=== PATIENT | female | born 1950 | race Caucasian/White ===

== ENCOUNTER 2016-09-21 05:37 | Inpatient (IN) | payer MEDICARE ==
--- NOTE | ~2016-09-21 | EEG ---
Electroencephalogram [address] [id number] [place]. [address] NAME: MCKAYLA LAWRENCE : 52 STATUS : ADM IN PAT#: [id number] AGE: 65 ADM/REG DATE : 09/21/16 MR#: [id number] REPORT SERV DATE: 09/23/16 DICTATED BY: DATE: REPORT STATUS : Draft TRANSCRIBED BY: MODL DATE: 09/23/16 CLINICAL INDICATION: Encephalopathy and stroke. DESCRIPTION: This EEG was performed using 10/20 electrode placement system. During the EEG study, symmetric background activity was noted with predominant occipital rhythm of 8 hertz. Photic stimulation was performed with driving response. Hyperventilation was not performed secondary to the patient's underlying medical condition. During the EEG study, the patient achieved drowsy state. No focal abnormalities, seizure activity, or seizure discharge were otherwise noted. INTERPRETATION: This EEG study was obtained during awake and drowsy state, may be considered within normal limits. No focal abnormalities, seizure activity, or seizure discharge were otherwise noted. Clinical correlation is recommended. [facility]/MODL Marvin Kenney MD / [id number] CC: MD Jesus Montiel M.D.
--- NOTE | ~2016-09-21 | DS ---
Discharge Summary [facility] [address] [facility] [place]. [address] NAME: MCKAYLA LAWRENCE : 52 STATUS : DIS IN PAT#: [id number] AGE: 65 ADM/REG DATE : 09/21/16 MR#: [id number] REPORT SERV DATE: 09/26/16 DICTATED BY: CRISTY SANDS DATE: 09/26/16 REPORT STATUS : Draft TRANSCRIBED BY: MODL DATE: 09/26/16 ADMISSION DATE: 09/21/2016 DISCHARGE DATE: 09/26/2016 ADDENDUM: The patient was actually scheduled to be discharged on 09/26/2016 to rehab, not on 09/25/2016. There were no overnight issues. We are working on, given the patient had enema and had a bowel movement. The patient does complain of some crampy abdominal pain, a little bit nausea secondary to constipation, but hope that this will be resolved after an enema and a bowel movement. The patient will be discharged today to [facility] Facility for rehab. Please refer to my discharge dictation for complete details regarding the patient's hospitalization, procedures, and medications. Spending over 30 minutes in discharge planning and coordination of care of Ms. Lawrence. TI/NIGEL Cristy Sands MD / [id number] CC: MD Jesus Montiel M.D.
--- NOTE | ~2016-09-21 | CN ---
Consultation Report [facility] [address] [place]. [address] NAME: MCKAYLA LAWRENCE : 52 STATUS : ADM IN PAT#: [id number] AGE: 65 ADM/REG DATE : 09/21/16 MR#: [id number] REPORT SERV DATE: 09/22/16 DICTATED BY: RADHA DELANEY DATE: 09/22/16 REPORT STATUS : Draft TRANSCRIBED BY: MODL DATE: 09/22/16 NEUROLOGY CONSULTATION DATE OF CONSULTATION: 09/22/2016 REASON FOR CONSULTATION: Right hemiparesis. HOSPITALIST: Dr. Nikolas Sands MD. HISTORY OF PRESENT ILLNESS: The patient is a 65-year-old female, who has complained of right sided weakness over the last fbqd-lp-[id number] days. The patient mentions that she has had right sided numbness due to an old stroke which happened approximately a year ago. However, over the last iuem-nv-[id number] days, she has gradually acquired weakness in the same distribution. She denies a sudden onset associated with this weakness. She does mention that on Wednesday, she called the EMS service and had to "drag her leg" with her walker over to the door to let the EMS in. At this point, she stated that she passed out and fell to the floor. She denies recalling having any seizure activity. When questioned more extensively, the patient mentioned that she has been diagnosed with seizure. She reports having tonic-clonic seizure activity and has been on Dilantin. However, she took herself off the medication a year ago because she was doing so well. Since that time, she denies having any seizure activity. The patient also reports having migraine headaches for the past 10 years. She has a headache usually every day and takes Percocet for her headache and her chronic pain. She takes wif-up-xdmhy of these a day. PAST MEDICAL HISTORY: Stroke with right-sided weakness; chronic diastolic heart failure; seizure; hypertension; hyperlipidemia; GERD; hiatal hernia; gastroparesis; irritable bowel syndrome; chronic back pain; diabetes mellitus; recurrent UTI (with 1 episode of ESBL); depression; anxiety; tobacco abuse; coronary artery disease; osteoarthritis; and degenerative disc disease. PAST SURGICAL HISTORY: Cholecystectomy, appendectomy, bladder tack, and tubal ligation. HOME MEDICATIONS: List consists of 1. Norvasc 5 mg daily. 2. Catapres TTS patch 3 mg in 24 hours to be applied q.week. 3. Valium 5 mg t.i.d. p.r.n. 4. Cymbalta 60 mg b.i.d. 5. Glyxambi 1 tablet daily. 6. Fenofibrate 160 mg daily. 7. Apresoline 50 mg q.8 hours. 8. Vascepa 1 g capsule b.i.d. Consultation Report [address] [place]. [address] NAME: MCKAYLA LAWRENCE : 52 STATUS : ADM IN PAT#: [id number] AGE: 65 ADM/REG DATE : 09/21/16 MR#: [id number] REPORT SERV DATE: 09/22/16 DICTATED BY: RADHA DELANEY DATE: 09/22/16 REPORT STATUS : Draft TRANSCRIBED BY: NIGEL DATE: 09/22/16 9. NovoLog insulin on a sliding scale. 10.Tresiba FlexTouch U-200 Pen 32 units daily. 11.Avalide 300/12.5 mg daily. 12.Imdur 30 mg daily. 13.Percocet 10/325 mg q.4 hours p.r.n. 14.Lyrica 75 mg b.i.d. 15.Phenergan 25 mg every 6 hours p.r.n. 16.Inderal LA 80 mg p.r.n. 17.Crestor 40 mg at bedtime. 18.Zanaflex 4 mg t.i.d. p.r.n. 19.Ambien 10 mg at bedtime p.r.n. ALLERGIES: NONE. SOCIAL HISTORY: The patient is a . She has 4 daughters. She lives by herself. She does use a walker to get around. She is a smoker. She does not drink alcohol or use recreational drugs. FAMILY HISTORY: The patient's mother is 82 years old, she is alive, she suffers from COPD. Her father at the age of 74 from lung cancer. She has two sisters who both from breast cancer. REVIEW OF SYSTEMS: For pertinent positives, see HPI. PHYSICAL EXAMINATION: GENERAL: The patient is a 65-year-old female, who stands 5 feet 6 inches tall and weighs 160 pounds. She is afebrile. VITAL SIGNS: Heart rate is 74, respiratory rate 18, O2 saturations on 1 L nasal cannula 96%, and blood pressure 125/84. NEUROLOGIC: The patient is awake. She is alert and oriented to person and place, not time. She is oriented to situation. Pupils are 4 mm. PERRLA. Cranial nerves 2 through 12 are intact. Vision via confrontation is full in both ramirez. She does report a slight diminished sensation on the right side of her face compared to the left. She is unable to perform [id number]-rv-idrj with the right arm. She is unable to lift her right arm without assistance. Strength in the right arm is 1/5 and in the left arm is 4/5. There is no tremor in the left arm, dysmetria, asterixis. DTRs are 2+ bilaterally. No reported sensory deficits comparing the left than the right. In the lower extremities, strength in the right is a 1/5 and on the left is a 4/5. DTRs are 2+ bilaterally. Slight footdrop noted bilaterally. Plantar reflexes are silent. The patient reports diminished sensation on the left when compared to the right. She cannot ambulate at this time. NECK: No carotid bruits, JVD, or thyromegaly. CHEST: Lung sounds clear. Diminished in the bases. CARDIAC: Regular rate and rhythm. DATA: CBC is normal. BMP shows a serum bicarb of 15, BUN of 51, creatinine 2.23, and a Consultation Report [address] [address] NAME: MCKAYLA LAWRENCE KAREN : 52 STATUS : ADM [facility]#: [id number] AGE: 65 ADM/REG DATE : 09/21/16 MR#: [id number] REPORT SERV DATE: 09/22/16 DICTATED BY: RADHA DELANEY DATE: 09/22/16 REPORT STATUS : Draft TRANSCRIBED BY: MODL DATE: 09/22/16 glucose of 151. Dilantin level is 0.04. CPK is 1090. Myoglobin 764. Urine is positive for a UTI. Sedimentation rate is only 24. Cholesterol values back in August are elevated with triglyceride of 1381. MRI of the brain shows no evidence of acute stroke/infarct. NIH stroke scale is 4. ASSESSMENT/PLAN: 1. Right hemiparesis, unknown etiology. The differentials would include Dominguez paralysis secondary to seizure. The patient will undergo an EEG. She is on Dilantin but will be changed to Depakote to help with headache prevention. She will be placed on 250 mg b.i.d. today and will be rapidly increased as tolerated. She will also be given a headache cocktail with a loading dose of Depakote today. Second differential could be weakness secondary to UTI. 2. Migraine. This is most likely due to daily medication overuse or rebound. The patient was educated on rebound headaches; however, she does have chronic pain and takes daily narcotics. Her Fioricet will be discontinued and she will be placed on Depakote again as preventative measures. Lab work will be drawn. Baseline liver panel and ammonia level will be drawn since the patient will be placed on Depakote. She will have a carotid duplex study and echocardiogram. Thank you again for including us in consultation. ROSSANA/NIGEL Radha Delaney [facility]- / [id number] CC: MD Jesus Montiel M.D.
--- NOTE | ~2016-09-21 | DS ---
Discharge Summary [facility] [address] [place]. [address] NAME: MCKAYLA LAWRENCE : 52 STATUS : ADM IN [facility]#: [id number] AGE: 65 ADM/REG DATE : 09/21/16 MR#: [id number] REPORT SERV DATE: 09/26/16 DICTATED BY: NIKOLAS SANDS DATE: 09/25/16 REPORT STATUS : Draft TRANSCRIBED BY: MODL DATE: 09/25/16 ADMISSION DATE: 09/21/2016 DISCHARGE DATE: 09/25/2016 REASON FOR ADMISSION: Acute kidney injury and uncontrolled diabetes. HISTORY OF PRESENT ILLNESS: Please refer Dr. Childers's history and physical dated 09/21/2016 for complete details on the patient's admission. In brief, the patient was admitted to the hospitalist Service for [facility]Y. HOSPITAL COURSE: Several issues were addressed. 1. Acute kidney injury. This is secondary to dehydration. The patient was admitted with a creatinine of 4.3, and it is down to 1.3 at the time of discharge. It has been going down every day since admission with the help of IV fluids. 2. Uncontrolled diabetes. The patient presented with a markedly elevated hemoglobin A1c likely secondary to noncompliance. We have been titrating her insulin regimen around, she is currently on 30 units of Levemir at night along with a sliding scale and her last set of blood glucose levels have been in the 100s. 3. Right-sided hemiparesis. The patient states that she has been pretty weak on her right side ever since she had an old stroke; however, she is unable to move it. There was concern for worsening of a stroke. The patient got a stat MRI done which showed no evidence of an acute infarction. There was evidence for moderate amount of old deep white matter injury in the right and left centrum semiovale. No evidence of any micro bleeds. Neurology was consulted for her right hemiparesis as there was concern for possible Dominguez paralysis given her history of seizure disorder. Physical Therapy had worked with her and recommended rehab. Neurology had ordered a carotid Doppler which showed category 1 disease bilaterally and she also had an echocardiogram done which showed an EF of 67%, right ventricular systolic function intact, valvular anatomy poorly defined. No significant valvular disease. No change compared to May 2013. 4. Syncope, prior to admission. This could have been caused by a possible seizure as the patient took herself off Dilantin. She is mostly bed bound in the hospital given her right-sided hemiparesis, but has not had any syncopal episodes since being here. 5. Seizure disorder. The patient has never seen a neurologist and had her seizure managed by her PCP. She had been on Dilantin; however, her Dilantin levels were extremely low. I confronted her about the last time she used Dilantin, she said it has been over a year, and she felt like she did not have any seizures and therefore she took herself off Dilantin. Given her migraines and her seizures Neurology had recommended changing her over to Depakote for which she has been on several days. 6. Migraine, it could be secondary to narcotics. Unfortunately, she is on chronic pain and has been on oxycodone or Percocet in a chronic nature and we do not want to discontinue it right away. The Depakote may have helped a little bit. 7. Constipation. The patient is getting laxatives. 8. Morbid obesity. 9. Nausea likely secondary to constipation versus diabetic gastroparesis. PROCEDURES: Include: Discharge Summary [place] [id number] [facility] [place]. [address] NAME: MCKAYLA LAWRENCE : 52 STATUS : ADM IN [facility]#: [id number] AGE: 65 ADM/REG DATE : 09/21/16 MR#: [id number] REPORT SERV DATE: 09/26/16 DICTATED BY: NIKOLAS SANDS DATE: 09/25/16 REPORT STATUS : Draft TRANSCRIBED BY: NIGEL DATE: 09/25/16 1. Neurology consult. 2. MRI of the brain. 3. Echocardiogram. 4. Carotid Doppler. 5. religious educator consult. DISCHARGE MEDICATIONS: Include: 1. Amlodipine 5 mg once a day. 2. Depakote 500 mg twice a day. 3. Cymbalta 60 mg twice a day. 4. Fenofibrate 160 mg daily. 5. Insulin Tresiba 32 units daily along with insulin aspart sliding scale three times a day with meals. 6. Reglan 5 mg three times a day with meals. 7. Lyrica 75 mg twice a day. 8. Metoprolol tartrate 25 mg daily. 9. Klonopin one patch every 7 days, it is 0.3 mg dose. 10.Crestor 40 mg at bedtime. 11.Diazepam 5 mg p.r.n. anxiety. 12.Percocet 10/325 mg p.r.n. pain. 13.Ambien 5 mg p.r.n. sleep. 14.Phenergan p.r.n. nausea. The patient will be discharged to [facility] for rehab in a stable condition. Spending over 30 minutes in discharge planning and coordination of care on Ms. Lawrence. JOANN Nikolas Sands MD / [id number] CC: MD Jesus Montiel M.D.
--- NOTE | ~2016-09-21 | HP ---
History And Physical [address] [address] NAME: MCKAYLA LAWRENCE KAREN : 52 STATUS : ADM IN PAT#: [id number] AGE: 65 ADM/REG DATE : 09/21/16 MR#: [id number] REPORT SERV DATE: 09/21/16 DICTATED BY: CONOR CHEW DATE: 09/21/16 REPORT STATUS : Draft TRANSCRIBED BY: MODL DATE: 09/21/16 DATE OF ADMISSION: 09/21/2016 CHIEF COMPLAINT: 65-year-old female presenting with weakness and evidence of acute renal failure, uncontrolled blood sugars. HISTORY OF PRESENT ILLNESS: The patient's history was obtained through careful interview with patient, coupled with review of [facility] medical records. The patient states that for about three to four days she has felt increasingly weak. She has had numbness on the right side of her body and worsening weakness compared to her old right hemiparesis from stroke but she states that she is generally weak and finally today became too weak to walk. She felt lightheaded and felt as if she passed out briefly this evening. She has a very poor appetite, has actually had episodes of nausea and vomiting for several days. She also describes dysuria but no urinary frequency. No diarrhea. She has chronic shortness of breath and she states "I just struggle." No chest pain. No cough. She describes the headache as her only pain complaint in the left rastafari, a sharp aching quality, 7 to 8/10 severity. No abdominal pain. No back or flank tenderness. She admits her diabetes is poorly controlled with blood sugars most often in 300s and 400s. REVIEW OF SYSTEMS: Otherwise, 14-point review of systems was obtained and was negative. PAST MEDICAL HISTORY: 1. Stroke in 2013 with residual right-sided weakness, bilateral basal ganglia lacunar stroke. 2. Diastolic congestive heart failure. 3. Seizure disorder but no seizures in more than a year. She is on chronic Dilantin. 4. Hypertension. 5. Elevated cholesterol. 6. Gastroesophageal reflux disorder. 7. Hiatal hernia. 8. Gastroparesis. History And Physical [address] [address] NAME: MCKAYLA LAWRENCE KAREN : 52 STATUS : ADM IN PAT#: [id number] AGE: 65 ADM/REG DATE : 09/21/16 MR#: [id number] REPORT SERV DATE: 09/21/16 DICTATED BY: CONOR CHEW DATE: 09/21/16 REPORT STATUS : Draft TRANSCRIBED BY: NIGEL DATE: 09/21/16 9. Irritable bowel syndrome. 10.Chronic back pain with pain management. 11.Diabetes. Hemoglobin A1c of 11.8, 09/01/2016. 12.Recurrent urinary tract infections with overactive bladder. One time, the patient had an ESBL E. coli infection. 13.Depression/anxiety. PAST SURGICAL HISTORY: 1. Cholecystectomy. 2. Hysterectomy. 3. Bladder tack. 4. Tubal ligation. ALLERGIES: NO KNOWN DRUG ALLERGIES. SOCIAL HISTORY: Smokes up to two packs per day. No alcohol abuse. She is a , has 4 daughters, lives in [place], [place], ambulates with a walker. FAMILY HISTORY: Father of lung cancer at 74 years of age. Two sisters of breast cancer. CURRENT MEDICATIONS: Tresiba 32 units subcutaneous every 4th day, NovoLog 10 units before each meal, Norvasc 5 mg p.o. daily, Lipitor 40 mg p.o. daily, cholestyramine, clonidine patch, Valium 5 mg p.o. t.i.d., Duloxetine 60 mg daily, fenofibrate 160 mg daily, hydralazine 50 mg p.o. t.i.d., irbesartan/hydrochlorothiazide 300/12.5 p.o. daily, isosorbide mononitrate, Lyrica 75 mg p.o. b.i.d., oxycodone p.r.n., promethazine, propranolol 80 mg p.o. daily, Ambien p.r.n., muscle relaxer, trazodone? PHYSICAL EXAMINATION: VITAL SIGNS: Temperature 98.2, pulse 96, blood pressure 146/84, respiratory rate 19, O2 saturation 98% on 2 L nasal cannula. GENERAL: An ill-appearing female, but in no evidence of distress. HEENT: Pupils equal, round, and reactive to light. No conjunctival pallor. No scleral icterus. Nares are patent. Oropharynx is clear of obstruction. Very dry mucous membranes. NECK: Trachea midline. No thyromegaly. LYMPH: No cervical lymphadenopathy. No supraclavicular lymphadenopathy. RESPIRATORY: Clear to auscultation at bases. No wheezes, rales, or rhonchi. Normal respiratory effort. CARDIOVASCULAR: Regular rate and rhythm. No murmurs, rubs, or gallops. No extremity edema is appreciated. ABDOMEN: Soft, nontender, nondistended. Normal bowel sounds auscultated throughout. No hepatosplenomegaly. DERMATOLOGIC: Warm and dry. EXTREMITIES: No pallor. No cyanosis. PSYCHIATRIC: Normal affect. Good mood. Alert and oriented x3. NEUROLOGIC: The patient has 4-5 strength in upper and lower extremities that seems symmetrical to me. She has 2+ deep tendon reflexes in upper and lower extremities that are History And Physical [address] [address] NAME: MCKAYLA LAWRENCE : 52 STATUS : ADM IN [facility]#: [id number] AGE: 65 ADM/REG DATE : 09/21/16 MR#: [id number] REPORT SERV DATE: 09/21/16 DICTATED BY: CONOR CHEW DATE: 09/21/16 REPORT STATUS : Draft TRANSCRIBED BY: NIGEL DATE: 09/21/16 symmetrical. Cranial nerves 2 through 12 are intact and symmetrical at this time. LABORATORY DATA: White blood cell count 10.8, hemoglobin 16, hematocrit 47, platelets 288. Sodium 127, potassium 5.0, chloride 90, bicarb 20, BUN 74, creatinine 4.3 from baseline creatinine of 1.1, glucose 387, CPK 1090. Lactic acid 3.4. INR 1.0. Urinalysis pending at time of dictation. STUDIES: 1. Chest x-ray by my own evaluation shows chronic stable changes compared to 07/2015 nothing acute. 2. EKG by my own evaluation shows sinus rhythm, left axis deviation. 3. CT scan of the brain without contrast shows no acute intracranial process. ASSESSMENT AND PLAN: 1. Acute renal failure. Suspect dehydration. No obstruction is evident. As of yet, the patient has about 40 mL of urine. One Staton catheter placed. Placed on IV fluids. Staton catheter. Check renal ultrasound. 2. Suspect urinary tract infection. Check urine culture. Check urinalysis. Start empiric IV Rocephin although 1 time patient did have ESBL E. coli. 3. Uncontrolled diabetes. Obtain clinical document improvement educator consult. Hemoglobin A1c of 11.8, 09/01/2016. Change to Levemir and increase to b.i.d. dosing. Place on aggressive sliding scale insulin. 4. Late effects of stroke. Chronic right-sided weakness. 5. Seizure disorder. Check Dilantin level. 6. Chronic pain management. 7. Headache. Check ESR to rule out temporal arteritis. [facility]/MODL Conor Chew M.D. / [id number] CC: Allison Jauregui M.D.
[2016-09-21 04:29] LABS: BASOPHILS 0.3 %; BASOPHILS ABSOLUTE 0.03 10/3/uL (0.0-0.16); EOSINOPHILS 1.3 %; EOSINOPHILS ABSOLUTE 0.14 10/3/uL (0.0-0.53); IMMATURE GRANULOCYTES 0.9 %; LYMPHOCYTES 23.4 %; LYMPHOCYTES ABSOLUTE 2.52 10/3/uL (0.67-4.30); MEAN CORPUSCULAR VOLUME 85.7 fL (80-100); MEAN PLATELET VOLUME 11.3 fL (9.2-13.0); MONOCYTES 6.6 %; MONOCYTES ABSOLUTE 0.71 10/3/uL (0.21-1.20); NEUTROPHILS 67.5 %; NEUTROPHILS ABSOLUTE 7.29 10/3/uL (2.02-8.40); PLATELET COUNT 288 10/3/uL (150-400); WHITE BLOOD CELLS 10.8 10/3/uL (4.5-10.5)
[2016-09-21 04:33] LABS: ER CBC TAT 0 Hrs 08 Mins; HEMATOCRIT 47.3 % (36.0-48.0); HEMOGLOBIN 16.8 g/dL (12.0-16.0); MANUAL DIFF NO %; MEAN CORPUS HGB CONC 35.5 g/dL (32.0-36.0); MEAN CORPUSCULAR HEMOGLOB 30.4 pg (26.0-34.0); RED CELL COUNT 5.52 10/6/uL (4.0-5.6)
[2016-09-21 04:42] LABS: PARTIAL THROMBO TIME 37.7 SEC (22.5-37.2); PROTIME (NOT ORD) 13.3 SEC (12.0-14.5)
[2016-09-21 05:00] LABS: A/G RATIO 0.8 (0.7-1.9); ALBUMIN 3.4 G/DL (3.5-5.0); ALKALINE PHOSPHATASE 164 U/L (45-117); BUN (BLOOD UREA NITROGEN) 74 MG/DL (6-23); CALCIUM, SERUM 9.2 MG/DL (8.5-10.4); CHLORIDE, SERUM 90 MMOL/L (96-112); CO2 (CARBON DIOXIDE) 20 MMOL/L (24-34); CPK 1090 U/L (0-200); CREATININE 4.32 MG/DL (0.55-1.02); GFR AFRICAN AMERICAN 12 ML/MIN (>=60); GFR NON AFRICAN AMERICAN 10 ML/MIN (>=60); GLOBULIN 4.3 G/DL (2.5-4.1); GLUCOSE, SERUM 387 MG/DL (60-99); MYOGLOBIN, SERUM 764 NG/ML (0-85); SALICYLATE 2.8 MG/DL (-); SGOT(AST) 23 U/L (5-40); SGPT(ALT) 16 U/L (5-65); SODIUM, SERUM 127 MMOL/L (135-148); TOTAL BILIRUBIN 0.6 MG/DL (0-1.2); TOTAL PROTEIN 7.7 G/DL (6.0-8.5); TROPONIN I <0.02 NG/ML (<0.05)
[2016-09-21 05:01] LABS: ACETAMINOPHEN LEVEL (TYLENOL) < 2.0 MCG/ML (10.0-20.0); ALCOHOL < 10 MG/DL (0)
[~2016-09-21 05:37] MED LIST: AMB10 PO; APRES50 PO; ATV1 PO; BACTROINT TOP; BYSTOLIC5 MG PO; CAT3 PO; CATAPRES3 TOP; CEFT2 PO; CRESTOR40 MG PO; CYMBALTA30 PO; CYMBALTA60 PO; D100 PO; DIOVAN HC2 PO; DIOVAN HCT320 MG/25 PO; DIOVAN320 MG PO; DITROXL5 PO; DOX10 PO; GEODON60 MG PO; GLUCOPHAGE1000 MG PO; GLUCPH PO; HALF81 PO; HYDROCHLOROT12.5 MG PO; ILA60 PO; IMDUR30 PO; JANUMET1 TA1 PO; JANUMET1 TAB PO; JANUVIA100 MG PO; JANUVIA50 PO; KDUR10 PO; LANTUS SC; LEVAQUIN750 MG PO; LEVEMFLXPN SC; LEVEMIR SC; LEXAPRO20 PO; LOPID6 PO; LORTAB10 PO; LUNESTA3 MG PO; LYRICA50 PO; MCZ25 PO; MEP50TAB PO; MSCONTIN PO; NEBULIZER SOLUTION INH; NEUR100 PO; NEUR600 PO; NEXIUM40 PO; NORV10 PO; NORV5 PO; NOVOLOG SC; OXYCON20 PO; OXYCONTIN30 MG PO; PERCOCET1 TA4 PO; PHENYTEK300 MG PO; POTASSIUM CHLORIDE PO; PR25 PO; PRIN20 PO; PROTONIX20 MG PO; REG PO; REST15 PO; RESTORIL30 MG PO; SOMATAB PO; SPIRO25 PO; TEKTURNA300 MG PO; TOPXL25 PO; TRAZ100 PO; TRAZ50 PO; TRESIBA INSULIN SC; V5 PO; VESICARE10 MG PO; WELLSR150 PO; X5 PO; XANAX XR3 MG PO; ZANAFLEX 4 MG TA4 MG PO; ZOFRAN4 PO; [UNRECOGNIZED DRUG - OTHER] OR
[2016-09-21 06:13] LABS: ASCORBIC ACID (UR NOT ORDER) NEG (NEG); BILIRUBIN, URINE NEGATIVE (NEG); ER URINALYSIS TAT 0 Hrs 00 Mins; KETONE, URINE TRACE MG/DL (NEG); LEUKOCYTE ESTERASE(NOT OR SMALL (NEG); NITRITE (URINE) NEG (NEG); WBC (NOT ORDERED) (RFLEX) 11 (0-5)
[2016-09-21 06:33] LABS: PROCALCITONIN 0.64 ng/mL (<0.5)
[2016-09-21 06:42] LABS: AMPHETAMINES (NOT ORD) NEG (NEG); BARBITURATES (NOT ORDERED NEG (NEG); BENZODIAZEPINES (NOT ORD) POS (NEG); CANNABINOIDS (THC) NEG (NEG); COCAINE (NOT ORDERED) NEG (NEG); OPIATES POS (NEG); PHENCYCLIDINE(PCP) NEG (NEG); TRICYCLICS NEG (NEG)
[2016-09-21] MEDS ORDERED: BELSOMRA15 MG PO (06:55)
[2016-09-21] MEDS ORDERED: PREVALITE4 G1 PO (06:59)
[2016-09-21] MEDS ORDERED: V5 PO (07:01)
[2016-09-21] MEDS ORDERED: LOFIB160 PO (07:02)
[2016-09-21] MEDS ORDERED: AVALIDE1 TA1 PO (07:03)
[2016-09-21] MEDS ORDERED: LYRICA75 PO (07:03)
[2016-09-21] MEDS ORDERED: NOVOPENMIX SC (07:05)
[2016-09-21] MEDS ORDERED: PERCOCET 10/3251 TAB PO (07:06)
[2016-09-21] MEDS ORDERED: PR25 PO (07:07)
[2016-09-21] MEDS ORDERED: TRESIBA FL200 UNIT/1 SC (07:10)
[2016-09-21] MEDS ORDERED: AMB10 PO (07:12)
[2016-09-21] MEDS ORDERED: GLYXAMBI 25 MG1 EACH PO (07:13)
[2016-09-21] MEDS ORDERED: ZANAFLEX 4 MG TA4 MG PO (07:13)
[2016-09-21] MEDS ORDERED: TRAZ50 PO (07:14)
[2016-09-21 10:09] LABS: BASOPHILS 0.2 %; BASOPHILS ABSOLUTE 0.02 10/3/uL (0.0-0.16); EOSINOPHILS ABSOLUTE 0.11 10/3/uL (0.0-0.53); HEMATOCRIT 43.5 % (36.0-48.0); HEMOGLOBIN 15.3 g/dL (12.0-16.0); IMMATURE GRANULOCYTES 0.8 %; IMMATURE GRANULOCYTES ABSOLUTE 0.09 10/3/uL (0.0-0.11); LYMPHOCYTES 33.2 %; LYMPHOCYTES ABSOLUTE 3.57 10/3/uL (0.67-4.30); MANUAL DIFF NO %; MEAN CORPUS HGB CONC 35.2 g/dL (32.0-36.0); MEAN CORPUSCULAR HEMOGLOB 29.9 pg (26.0-34.0); MEAN CORPUSCULAR VOLUME 85.1 fL (80-100); MEAN PLATELET VOLUME 10.9 fL (9.2-13.0); MONOCYTES 7.9 %; MONOCYTES ABSOLUTE 0.85 10/3/uL (0.21-1.20); NEUTROPHILS 56.9 %; PLATELET COUNT 267 10/3/uL (150-400); RED CELL COUNT 5.11 10/6/uL (4.0-5.6); WHITE BLOOD CELLS 10.7 10/3/uL (4.5-10.5)
[2016-09-21 10:18] LABS: PROTIME (NOT ORD) 13.5 SEC (12.0-14.5)
[2016-09-21 10:32] LABS: DILANTIN (PHENYTOIN) 0.4 MCG/ML (10.0-20.0)
[2016-09-21 10:36] LABS: A/G RATIO 0.8 (0.7-1.9); ALBUMIN 2.9 G/DL (3.5-5.0); ALKALINE PHOSPHATASE 137 U/L (45-117); BUN (BLOOD UREA NITROGEN) 65 MG/DL (6-23); CALCIUM, SERUM 8.9 MG/DL (8.5-10.4); CHLORIDE, SERUM 98 MMOL/L (96-112); CO2 (CARBON DIOXIDE) 20 MMOL/L (24-34); GFR AFRICAN AMERICAN 16 ML/MIN (>=60); GFR NON AFRICAN AMERICAN 14 ML/MIN (>=60); GLOBULIN 3.7 G/DL (2.5-4.1); GLUCOSE, SERUM 221 MG/DL (60-99); POTASSIUM, SERUM 4.3 MMOL/L (3.5-5.3); SGOT(AST) 18 U/L (5-40); SGPT(ALT) 16 U/L (5-65); SODIUM, SERUM 134 MMOL/L (135-148); TOTAL BILIRUBIN 0.5 MG/DL (0-1.2); TOTAL PROTEIN 6.6 G/DL (6.0-8.5); TROPONIN I <0.02 NG/ML (<0.05); ULTRASENSITIVE TSH 0.239 MCIU/ML (0.358-3.740)
[2016-09-21 11:03] LABS: SED RATE 36 MM/HR (0-20)
[2016-09-21 12:06] LABS: PROCALCITONIN 0.36 ng/mL (<0.5)
[2016-09-21] MEDS ORDERED: INDE80LA PO (12:47)
[2016-09-21] MEDS ORDERED: VASCEPA1 GM PO (12:47)
[2016-09-22 04:13] LABS: HEMATOCRIT 43.4 % (36.0-48.0); HEMOGLOBIN 14.9 g/dL (12.0-16.0); MEAN CORPUS HGB CONC 34.3 g/dL (32.0-36.0); MEAN CORPUSCULAR HEMOGLOB 30.2 pg (26.0-34.0); MEAN PLATELET VOLUME 11.4 fL (9.2-13.0); PLATELET COUNT 301 10/3/uL (150-400); RBC DISTRIBUTION WIDTH 13.2 % (12.0-16.0); RED CELL COUNT 4.93 10/6/uL (4.0-5.6); WHITE BLOOD CELLS 8.1 10/3/uL (4.5-10.5)
[2016-09-22 04:14] LABS: MANUAL DIFF YES %
[2016-09-22 04:36] LABS: BAND NEUTROPHILS 5 %; LYMPHOCYTES 30 %; LYMPHOCYTES ABSOLUTE (CALC) 2.43 10/3/uL (0.67-4.30); MONOCYTES 7 %; MONOCYTES ABSOLUTE (CALC) 0.57 10/3/uL (0.21-1.20); PLATELET ESTIMATE ADQ (ADEQUATE); RBC MORPHOLOGY NORM (NORMAL); SEGMENTED NEUTROPHIL (0) 58 %; TOTAL NUCLEATED CELLS 100
[2016-09-22 07:03] LABS: POTASSIUM, SERUM 4.1 MMOL/L (3.5-5.3); SGPT(ALT) 45 U/L (5-65); SODIUM, SERUM 138 MMOL/L (135-148)
[2016-09-22 07:36] LABS: A/G RATIO 0.7 (0.7-1.9); ALBUMIN 2.5 G/DL (3.5-5.0); CALCIUM, SERUM 8.1 MG/DL (8.5-10.4); CHLORIDE, SERUM 111 MMOL/L (96-112); GLOBULIN 3.4 G/DL (2.5-4.1); TOTAL BILIRUBIN 0.4 MG/DL (0-1.2); TOTAL PROTEIN 5.9 G/DL (6.0-8.5)
[2016-09-22 07:39] LABS: ALKALINE PHOSPHATASE 275 U/L (45-117); BUN (BLOOD UREA NITROGEN) 51 MG/DL (6-23); CO2 (CARBON DIOXIDE) 15 MMOL/L (24-34); CREATININE 2.23 MG/DL (0.55-1.02); GFR AFRICAN AMERICAN 26 ML/MIN (>=60); GFR NON AFRICAN AMERICAN 23 ML/MIN (>=60); GLUCOSE, SERUM 151 MG/DL (60-99); SGOT(AST) 105 U/L (5-40)
[2016-09-23 06:37] LABS: BASOPHILS 0.2 %; BASOPHILS ABSOLUTE 0.01 10/3/uL (0.0-0.16); EOSINOPHILS 0.3 %; EOSINOPHILS ABSOLUTE 0.02 10/3/uL (0.0-0.53); HEMATOCRIT 40.1 % (36.0-48.0); HEMOGLOBIN 13.5 g/dL (12.0-16.0); IMMATURE GRANULOCYTES 0.8 %; IMMATURE GRANULOCYTES ABSOLUTE 0.05 10/3/uL (0.0-0.11); LYMPHOCYTES 29.2 %; MEAN CORPUS HGB CONC 33.7 g/dL (32.0-36.0); MEAN CORPUSCULAR HEMOGLOB 29.3 pg (26.0-34.0); MEAN PLATELET VOLUME 10.7 fL (9.2-13.0); MONOCYTES 8.3 %; MONOCYTES ABSOLUTE 0.54 10/3/uL (0.21-1.20); NEUTROPHILS 61.2 %; NEUTROPHILS ABSOLUTE 3.98 10/3/uL (2.02-8.40); PLATELET COUNT 239 10/3/uL (150-400); RED CELL COUNT 4.61 10/6/uL (4.0-5.6); WHITE BLOOD CELLS 6.5 10/3/uL (4.5-10.5)
[2016-09-23 06:38] LABS: MANUAL DIFF NO %
[2016-09-23 07:21] LABS: ALBUMIN 2.7 G/DL (3.5-5.0); ALKALINE PHOSPHATASE 289 U/L (45-117); BUN (BLOOD UREA NITROGEN) 29 MG/DL (6-23); CALCIUM, SERUM 8.6 MG/DL (8.5-10.4); CHLORIDE, SERUM 97 MMOL/L (96-112); CHOL/HDL RATIO(NOT ORDER) 6.1 (0-5); CHOLESTEROL 239 MG/DL (< 200); CO2 (CARBON DIOXIDE) 33 MMOL/L (24-34); CREATININE 1.55 MG/DL (0.55-1.02); DIRECT BILIRUBIN < 0.1 MG/DL (0.0-0.4); FOLATE 7.8 NG/ML (>5.2); GFR AFRICAN AMERICAN 41 ML/MIN (>=60); GFR NON AFRICAN AMERICAN 35 ML/MIN (>=60); GLUCOSE, SERUM 205 MG/DL (60-99); HDL CHOLESTEROL 39 MG/DL (> 49); INDIRECT BILIRUBIN(NOT ORDER) 0.2 MG/DL (0.1-0.9); LDL CHOLESTEROL 136 MG/DL (< 130); NON-HDL CHOLESTEROL 200 MG/DL (< 160); PHOSPHORUS, SERUM 2.3 MG/DL (2.5-4.5); POTASSIUM, SERUM 4.3 MMOL/L (3.5-5.3); SGOT(AST) 43 U/L (5-40); SGPT(ALT) 44 U/L (5-65); SODIUM, SERUM 138 MMOL/L (135-148); TOTAL BILIRUBIN 0.3 MG/DL (0-1.2); TOTAL PROTEIN 6.2 G/DL (6.0-8.5); TRIGLYCERIDE 321 MG/DL (< 150)
[2016-09-24 06:48] LABS: HEMATOCRIT 43.2 % (36.0-48.0); HEMOGLOBIN 14.4 g/dL (12.0-16.0); MEAN CORPUS HGB CONC 33.3 g/dL (32.0-36.0); MEAN CORPUSCULAR HEMOGLOB 29.6 pg (26.0-34.0); MEAN CORPUSCULAR VOLUME 88.7 fL (80-100); MEAN PLATELET VOLUME 10.9 fL (9.2-13.0); PLATELET COUNT 291 10/3/uL (150-400); RBC DISTRIBUTION WIDTH 13.3 % (12.0-16.0); RED CELL COUNT 4.87 10/6/uL (4.0-5.6)
[2016-09-24 06:50] LABS: MANUAL DIFF YES %; WHITE BLOOD CELLS 10.7 10/3/uL (4.5-10.5)
[2016-09-24 06:58] LABS: BUN (BLOOD UREA NITROGEN) 27 MG/DL (6-23); CHLORIDE, SERUM 98 MMOL/L (96-112); CO2 (CARBON DIOXIDE) 34 MMOL/L (24-34); CREATININE 1.38 MG/DL (0.55-1.02); GFR AFRICAN AMERICAN 47 ML/MIN (>=60); GFR NON AFRICAN AMERICAN 40 ML/MIN (>=60); PHOSPHORUS, SERUM 2.7 MG/DL (2.5-4.5); POTASSIUM, SERUM 4.2 MMOL/L (3.5-5.3); SODIUM, SERUM 140 MMOL/L (135-148)
[2016-09-24 07:01] LABS: GLUCOSE, SERUM 58 MG/DL (60-99)
[2016-09-24 07:17] LABS: BAND NEUTROPHILS 3 %; EOSINOPHILS 3 %; EOSINOPHILS ABSOLUTE (CALC) 0.32 10/3/uL (0.0-0.53); IMMATURE GRANS ABSOLUTE (CALC) 0.11 10/3/uL (0.0-0.11); LYMPHOCYTES 55 %; LYMPHOCYTES ABSOLUTE (CALC) 5.89 10/3/uL (0.67-4.30); METAMYELOCYTES 1 %; MONOCYTES 2 %; MONOCYTES ABSOLUTE (CALC) 0.21 10/3/uL (0.21-1.20); NEUTROPHILS ABSOLUTE (CALC) 4.17 10/3/uL (2.02-8.40); PLATELET ESTIMATE ADQ (ADEQUATE); RBC MORPHOLOGY NORM (NORMAL); SEGMENTED NEUTROPHIL (0) 36 %; TOTAL NUCLEATED CELLS 100
[2016-09-25 06:20] LABS: BASOPHILS 0.2 %; BASOPHILS ABSOLUTE 0.02 10/3/uL (0.0-0.16); EOSINOPHILS 1.2 %; EOSINOPHILS ABSOLUTE 0.11 10/3/uL (0.0-0.53); HEMATOCRIT 46.7 % (36.0-48.0); HEMOGLOBIN 15.2 g/dL (12.0-16.0); IMMATURE GRANULOCYTES 1.6 %; IMMATURE GRANULOCYTES ABSOLUTE 0.14 10/3/uL (0.0-0.11); LYMPHOCYTES 42.9 %; MEAN CORPUS HGB CONC 32.5 g/dL (32.0-36.0); MEAN CORPUSCULAR HEMOGLOB 29.5 pg (26.0-34.0); MEAN CORPUSCULAR VOLUME 90.7 fL (80-100); MONOCYTES 8.2 %; MONOCYTES ABSOLUTE 0.73 10/3/uL (0.21-1.20); NEUTROPHILS 45.9 %; NEUTROPHILS ABSOLUTE 4.06 10/3/uL (2.02-8.40); PLATELET COUNT 280 10/3/uL (150-400); RBC DISTRIBUTION WIDTH 12.8 % (12.0-16.0); RED CELL COUNT 5.15 10/6/uL (4.0-5.6); WHITE BLOOD CELLS 8.9 10/3/uL (4.5-10.5)
[2016-09-25 06:38] LABS: BUN (BLOOD UREA NITROGEN) 24 MG/DL (6-23); CALCIUM, SERUM 9.3 MG/DL (8.5-10.4); CHLORIDE, SERUM 100 MMOL/L (96-112); CO2 (CARBON DIOXIDE) 31 MMOL/L (24-34); GFR AFRICAN AMERICAN 50 ML/MIN (>=60); GFR NON AFRICAN AMERICAN 43 ML/MIN (>=60); POTASSIUM, SERUM 4.4 MMOL/L (3.5-5.3); SODIUM, SERUM 140 MMOL/L (135-148)
[2016-09-25 06:41] LABS: GLUCOSE, SERUM 82 MG/DL (60-99)
[2016-09-25 06:42] LABS: MANUAL DIFF NO %
[2016-09-26 06:37] LABS: BASOPHILS 0.3 %; BASOPHILS ABSOLUTE 0.03 10/3/uL (0.0-0.16); EOSINOPHILS 2.3 %; EOSINOPHILS ABSOLUTE 0.22 10/3/uL (0.0-0.53); HEMATOCRIT 47.2 % (36.0-48.0); HEMOGLOBIN 15.3 g/dL (12.0-16.0); IMMATURE GRANULOCYTES 1.3 %; IMMATURE GRANULOCYTES ABSOLUTE 0.12 10/3/uL (0.0-0.11); LYMPHOCYTES 40.4 %; LYMPHOCYTES ABSOLUTE 3.86 10/3/uL (0.67-4.30); MEAN CORPUS HGB CONC 32.4 g/dL (32.0-36.0); MEAN CORPUSCULAR HEMOGLOB 29.8 pg (26.0-34.0); MEAN CORPUSCULAR VOLUME 91.8 fL (80-100); MEAN PLATELET VOLUME 10.7 fL (9.2-13.0); MONOCYTES 8.3 %; MONOCYTES ABSOLUTE 0.79 10/3/uL (0.21-1.20); NEUTROPHILS 47.4 %; NEUTROPHILS ABSOLUTE 4.53 10/3/uL (2.02-8.40); PLATELET COUNT 271 10/3/uL (150-400); RBC DISTRIBUTION WIDTH 13.1 % (12.0-16.0); RED CELL COUNT 5.14 10/6/uL (4.0-5.6); WHITE BLOOD CELLS 9.6 10/3/uL (4.5-10.5)
[2016-09-26 06:38] LABS: MANUAL DIFF NO %
[2016-09-26 06:52] LABS: BUN (BLOOD UREA NITROGEN) 25 MG/DL (6-23); CALCIUM, SERUM 9.4 MG/DL (8.5-10.4); CHLORIDE, SERUM 99 MMOL/L (96-112); CO2 (CARBON DIOXIDE) 30 MMOL/L (24-34); CREATININE 1.18 MG/DL (0.55-1.02); GFR AFRICAN AMERICAN 56 ML/MIN (>=60); GFR NON AFRICAN AMERICAN 49 ML/MIN (>=60); GLUCOSE, SERUM 72 MG/DL (60-99); PHOSPHORUS, SERUM 3.2 MG/DL (2.5-4.5); POTASSIUM, SERUM 4.3 MMOL/L (3.5-5.3); SODIUM, SERUM 139 MMOL/L (135-148)
[2016-12-13] MEDS ORDERED: CATAPRES3 TOP (12:25)
[2016-12-13] MEDS ORDERED: V5 PO (12:25)
[2016-12-13] MEDS ORDERED: NORV5 PO (12:25)
[2016-12-13] MEDS ORDERED: CYMBALTA60 PO (12:26)
[2016-12-13] MEDS ORDERED: LOFIB160 PO (12:26)
[2016-12-13] MEDS ORDERED: AVALIDE1 TA1 PO (12:28)
[2016-12-13] MEDS ORDERED: GLYXAMBI 25 MG1 EACH PO (12:28)
[2016-12-13] MEDS ORDERED: APRES50 PO (12:28)
[2016-12-13] MEDS ORDERED: IMDUR30 PO (12:31)
[2016-12-13] MEDS ORDERED: LYRICA75 PO (12:31)
[2016-12-13] MEDS ORDERED: NOVOPEN SC ×2 (12:31)
[2016-12-13] MEDS ORDERED: PERCOCET 10/3251 TAB PO (12:33)
[2016-12-13] MEDS ORDERED: CRESTOR40 MG PO (12:33)
[2016-12-13] MEDS ORDERED: INNOPRAN XL80 MG PO (12:33)
[2016-12-13] MEDS ORDERED: PR25 PO (12:33)
[2016-12-13] MEDS ORDERED: VASCEPA1 GM PO (12:34)
[2016-12-13] MEDS ORDERED: ZANAFLEX 4 MG TA4 MG PO (12:34)
[2016-12-13] MEDS ORDERED: TRESIBA FL200 UNIT/1 SC (12:34)
[2016-12-13] MEDS ORDERED: AMB10 PO (12:35)
[2016-12-13] MEDS ORDERED: BACDS PO (12:35)
[2016-12-13] MEDS ORDERED: REG5 PO (12:37)
[2016-12-13] MEDS ORDERED: LOP25 PO (12:37)
[2016-12-13] MEDS ORDERED: DEPAKOT500 PO (12:37)
== END 2016-09-26 18:26 | DRG 683 ==
LOC: ER 05:37 → 7NO 05:47
PROVIDERS: Hospitalist; Internal Medicine; Nurse Practitioner Acute Care
DX: N17.9 Acute kidney failure, unspecified (principal); N39.0 Urinary tract infection, site not specified; K31.84 Gastroparesis; I11.0 Hypertensive heart disease with heart failure; I50.32 Chronic diastolic (congestive) heart failure; E11.65 Type 2 diabetes mellitus with hyperglycemia; E66.01 Morbid (severe) obesity due to excess calories; E11.43 Type 2 diabetes mellitus with diabetic autonomic (poly)neuropathy; I69.351 Hemiplegia and hemiparesis following cerebral infarction affecting right dominant side; F17.210 Nicotine dependence, cigarettes, uncomplicated; E86.0 Dehydration; E78.5 Hyperlipidemia, unspecified; K21.9 Gastro-esophageal reflux disease without esophagitis; Z79.4 Long term (current) use of insulin; G40.909 Epilepsy, unspecified, not intractable, without status epilepticus; F32.9 Major depressive disorder, single episode, unspecified; F41.9 Anxiety disorder, unspecified; Z68.26 Body mass index [BMI] 26.0-26.9, adult; Z79.891 Long term (current) use of opiate analgesic; K59.00 Constipation, unspecified
CPT/HCPCS: 70450; 70551; 71010; 76775; 80048; 80053; 80061; 80076; 80185; 80305; 80307; 81001; 82140; 82550; 82607; 82746; 82962; 83036; 83605; 83735; 83874; 83880; 84100; 84145; 84443; 84484; 85025; 85610; 85652; 85730; 87086; 92610-GN; 93005; 93880; 95816; 96374; 97110-GO; 97110-GP; 97162-GP; 97165-GO; 97535-GO; 99285; A9270-GY; C8929; J0780; J2405; J2920; Q9957